=== PATIENT | female | born 1990 | race Caucasian/White ===

== ENCOUNTER 2016-11-26 20:06 | Inpatient (IN) | payer MEDICAID, OTHER ==
[~2016-11-26] VITALS: Ht 160 cm; Wt 58.4 kg
[~2016-11-26 20:06] MED LIST: PREN1TAB49
[2016-11-26] MEDS ORDERED: VANCOMYCIN 500MG/NS (PMX) 100 ML IVPB SCH (21:00)
[2016-11-26] MEDS ORDERED: CEFEPIME 2GM/50 ML (PMX) 50 ML IVPB ONE (21:00)
[2016-11-26] MEDS ORDERED: SOD CHLORIDE 0.9% 1,000 ML IV ONE (21:00)
--- NOTE | 2016-11-26 21:10 | ERD ---
ER Documentation Chief Complaint Date/Time DATE: 11/26/16 TIME: 21:08 Chief Complaint right breast pain x 3 weeks HPI This is a 26-year-old female presents to the ER with a 3 week history of right breast pain, redness, swelling. Patient saw her primary care doctor and was put on clindamycin and dicloxacillin. His antibiotics did not work, ultrasound was done and she was told she had an infection, she was then given cephalexin however this did not work either. Patient states that redness and swelling is worsening and areas now more painful. She denies any nipple discharge she denies any other skin changes. She does not have any family history of breast cancer. She does not have any fevers or chills. Pain is described as throbbing in quality and radiates to the right side of her back now. She has not tried anything for the pain. ROS 12 point review of systems was done, all negative except per HPI. Medications Home Meds Reported Medications Vits W-Ca,Fe,Fa(<1MG) () 1 Tab Tablet, 1 01/12/12 Allergies Allergies: Coded Allergies: No Known Allergy (Verified , 01/12/12) PMhx/Soc Medical and Surgical Hx: pt denies Medical Hx, pt denies Surgical Hx History of Surgery: Yes (DENIES MEDICAL PROBLEMS) Hx Alcohol Use: No Hx Substance Use: No Hx Tobacco Use: No Smoking Status: Never smoker Physical Exam Vitals Vital Signs Date Time Temp Pulse Resp B/P Pulse Ox O2 Delivery O2 Flow Rate FiO2 11/26/16 20:08 99.0 93 20 113/76 100 Physical Exam GENERAL: The patient is well developed and appropriate for usual state of health , in no apparent distress. HEENT: Atraumatic. CHEST: Clear to auscultation bilaterally. There are no rales, wheezes or rhonchi. HEART: Regular rate and rhythm. No murmurs, clicks, rubs or gallops. BREAST: large abscess to the right breast about 5cm*6cm. +nipple inversion of the right breast NEURO: alert and oriented SKIN: right breast abscess Results 24 hrs Current Medications Medications (Trade) Dose Ordered Sig/Kedar Route PRN Reason Start Time Stop Time Status Last Admin Dose Admin Vancomycin HCl 100 ml @ 100 mls/hr ONCE IVPB 11/26/16 21:00 11/26/16 21:59 Cefepime HCl 50 ml @ 100 mls/hr ONCE ONCE IVPB 11/26/16 21:00 11/26/16 21:29 Sodium Chloride (NS) 1,000 ml @ 1,000 mls/hr Q1H ONCE IV 11/26/16 21:00 11/26/16 21:59 Procedures/MDM This is a 26-year-old female presents to the ER with a right breast abscess. At this time patient has failed outpatient antibiotics and will be admitted to the hospital for IV antibiotics and possible drainage. Departure Diagnosis: Primary Impression: Breast abscess Condition: Stable KERRI RAMOS Nov 26, 2016 21:10
--- NOTE | 2016-11-26 21:45 | RADRPT ---
PROCEDURE: XR Chest. CLINICAL INDICATION: chest pain TECHNIQUE: Single frontal view of the chest was obtained COMPARISON: 02/09/2009 FINDINGS: The heart and mediastinum are within normal limits. The lungs are clear. There is no pleural effusion or pneumothorax. RPTAT: AA IMPRESSION: No acute disease. .Edmund Mcnamara MD, MD Date Time Electronically viewed and signed by .Edmund Mcnamara MD, on 11/26/2016 21:45 .S/
[2016-11-26 21:46] LABS: URINE BLOOD (Dip) POC Trace-intact (NEGATIVE)
[2016-11-26 21:55] LABS: ADD SCAN DIFF NO
[2016-11-26 21:57] LABS: BASOPHIL # 0.1 10^3/ul (0.0-0.1); BASOPHILS % 0.4 % (0.0-2.0); EOSINOPHILS # 0.2 10^3/ul (0.0-0.5); EOSINOPHILS % 1.5 % (0.0-7.0); HEMATOCRIT 37.9 % (37.0-47.0); HEMOGLOBIN 12.6 g/dl (12.0-16.0); LYMPHOCYTES # 2.5 10^3/ul (0.8-2.9); LYMPHOCYTES % 20.6 % (15.0-51.0); MEAN CORPUSCULAR HEMOGLOBIN 30.1 pg (29.0-33.0); MEAN CORPUSCULAR HGB CONC 33.2 g/dl (32.0-37.0); MEAN CORPUSCULAR VOLUME 90.5 fl (82.0-101.0); MEAN PLATELET VOLUME 9.6 fl (7.4-10.4); MONOCYTE # 1.2 10^3/ul (0.3-0.9); MONOCYTES % 9.7 % (0.0-11.0); NEUTROPHIL # 8.1 10^3/ul (1.6-7.5); NEUTROPHILS % 67.4 % (39.0-77.0); PLATELET COUNT 330 10^3/UL (140-415); RED BLOOD COUNT 4.19 10^6/ul (4.20-5.40); RED CELL DISTRIBUTION WIDTH 13.2 % (11.5-14.5)
[2016-11-26 22:01] LABS: ADD UMIC YES; URINE BILIRUBIN (Dip) NEGATIVE (NEGATIVE); URINE BLOOD (Dip) TRACE (NEGATIVE); URINE COLOR LT. YELLOW (YELLOW); URINE GLUCOSE (Dip) NEGATIVE (NEGATIVE); URINE KETONES (Dip) NEGATIVE (NEGATIVE); URINE LEUKOCYTE ESTERASE (Dip) 2+ (NEGATIVE); URINE NITRITE (Dip) NEGATIVE (NEGATIVE); URINE TOTAL PROTEIN (Dip) NEGATIVE (NEGATIVE); URINE UROBILINOGEN (Dip) 0.2 E.U./dL (0.1-1.0)
[2016-11-26] MEDS ORDERED: ONDANSETRON 4 MG INJ IV STA (22:02)
[2016-11-26] MEDS ORDERED: morphine 4 MG/ML VIAL IV STA (22:02)
[2016-11-26 22:09] LABS: INR 0.89; PT RATIO 0.9
[2016-11-26 22:10] LABS: PARTIAL THROMBOPLASTIN TIME 29.1 Sec (25.0-35.0)
[2016-11-26 22:15] LABS: ALBUMIN/GLOBULIN RATIO 1.08; CALCIUM 9.1 mg/dl (8.4-10.2); CREATININE 0.65 mg/dl (0.44-1.00); POTASSIUM 3.8 mmol/L (3.5-5.1); TOTAL PROTEIN 7.7 g/dl (6.1-8.1)
[2016-11-26 22:19] LABS: BACTERIA,URINE MANY; SQUAMOUS EPITHELIAL CELL,UR MODERATE; URINE RBCS 0-2 /HPF (0)
[2016-11-26] MEDS ORDERED: SOD CHLORIDE 0.9% 1,000 ML IV SCH (23:37)
--- NOTE | 2016-11-26 23:40 | EN ---
Date/Time of Note Date/Time of Note DATE: 11/26/16 TIME: 23:39 ER Progress Note Patient admitted to panel. Sonogram is currently pending. Sonogram is been taking the pending reading. Will have Dr. Eden call general surgery transportation services representative, Dr Knuston to notify him of consultation when sonogram is read LEE PITTMAN DO Nov 26, 2016 23:40
--- NOTE | 2016-11-27 01:04 | RADRPT ---
PROCEDURE: Ultrasound breast right CLINICAL INDICATION: Right breast abscess, erythema TECHNIQUE: Ultrasound of the right breast was performed. COMPARISON: None available FINDINGS: At 12 o'clock position there is a 7 x 5 x 7 mm simple cyst. At 6 o'clock to 9 o'clock position ther e is a 7.1 x 6.9 x 2.9 cm irregularly marginated area of heterogeneous predominately relatively decr eased echogenicity without visualized internal vascular flow with the appearance of a complex fluid collection with internal moving debris which could represent an abscess. IMPRESSION: At 6 o'clock to 9 o'clock position of the right breast there is a 7.1 x 6.9 x 2.9 cm irregularly mar ginated area of heterogeneous predominately relatively decreased echogenicity without visualized int ernal vascular flow with the appearance of a complex fluid collection with internal moving debris wh ich could represent an abscess. RECOMMENDATION: Clinical management and follow-up is recommended. BIRADS 3 - probably benign Discussed with YOSVANY Wilkes at 01:00 a.m. on 11/27/2016. RPTAT: HJES .Joe Mcclelland MD, MD Date Time Electronically viewed and signed by .Joe Mcclelland MD, on 11/27/2016 01:04 .S/
[2016-11-27 02:41] VITALS: TEMP 98.5
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
[2016-11-27 04:20] VITALS: Ht 160 cm; Wt 58.4 kg
[2016-11-27 04:45] VITALS: BP 109/67; PULSE 77; RESP 19
[2016-11-27] MEDS ORDERED: ACETAMINOPHEN 325 MG TAB PO PRN ×2 (05:00)
[2016-11-27] MEDS ORDERED: ONDANSETRON 4 MG INJ IV PRN ×2 (05:00)
[2016-11-27] MEDS ORDERED: VANCOMYCIN IV PER PHARMACY XX SCH (05:00)
[2016-11-27] MEDS: VANCOMYCIN 1 GM in NS 250 ML IVPB SCH ×2 (05:08→16:05)
[2016-11-27 06:43] LABS: ADD SCAN DIFF NO
[2016-11-27 06:52] LABS: BASOPHIL # 0.1 10^3/ul (0.0-0.1); BASOPHILS % 0.4 % (0.0-2.0); EOSINOPHILS # 0.2 10^3/ul (0.0-0.5); EOSINOPHILS % 1.7 % (0.0-7.0); HEMATOCRIT 36.9 % (37.0-47.0); LYMPHOCYTES # 2.4 10^3/ul (0.8-2.9); LYMPHOCYTES % 19.9 % (15.0-51.0); MEAN CORPUSCULAR HEMOGLOBIN 29.9 pg (29.0-33.0); MEAN CORPUSCULAR HGB CONC 32.5 g/dl (32.0-37.0); MEAN CORPUSCULAR VOLUME 91.8 fl (82.0-101.0); MEAN PLATELET VOLUME 9.6 fl (7.4-10.4); MONOCYTE # 1.2 10^3/ul (0.3-0.9); MONOCYTES % 9.7 % (0.0-11.0); NEUTROPHIL # 8.3 10^3/ul (1.6-7.5); PLATELET COUNT 319 10^3/UL (140-415); RED BLOOD COUNT 4.02 10^6/ul (4.20-5.40); RED CELL DISTRIBUTION WIDTH 13.3 % (11.5-14.5); WHITE BLOOD COUNT 12.2 10^3/ul (4.8-10.8)
[2016-11-27 07:05] LABS: ALBUMIN 3.4 g/dl (3.3-4.9)
[2016-11-27 07:06] LABS: POTASSIUM 3.8 mmol/L (3.5-5.1)
[2016-11-27 07:08] LABS: ALBUMIN/GLOBULIN RATIO 0.97; BILIRUBIN,INDIRECT 0.4 mg/dl (0-1.1); BILIRUBIN,TOTAL 0.4 mg/dl (0.2-1.3); CREATININE 0.57 mg/dl (0.44-1.00); PHOSPHORUS 3.5 mg/dl (2.5-4.9); TOTAL PROTEIN 6.9 g/dl (6.1-8.1)
[2016-11-27 07:09] LABS: CALCIUM 8.3 mg/dl (8.4-10.2); MAGNESIUM 1.9 mg/dl (1.7-2.5)
[2016-11-27] MEDS: PIPER-TAZO 3.375 GM IV (PMX) 100 ML IVPB SCH ×4 (07:23→23:53)
[2016-11-27 07:49] VITALS: BP 91/54; RESP 18
--- NOTE | 2016-11-27 12:06 | PN ---
Date/Time of Note Date/Time of Note DATE: 11/27/16 TIME: 12:01 Assessment/Plan VTE Prophylaxis VTE Prophylaxis Intervention: other Lines/Catheters [facility] Saline Lock Urinary Cath still in place: No Assessment/Plan Problems: (1) Breast abscess Status: Acute Comment: She has rather significant breast abscess is failed all attempts at outpatient treatment. She is admitted and is on IV antibiotic therapy. She will need most likely some type of a modest drainage procedure and general surgery has been contacted per Subjective 24 Hr Interval Summary Free Text/Dictation Patient reports that she is still having significant pain. Respiratory: no complaints Cardiovascular: no complaints Gastrointestinal: no complaints Genitourinary: no complaints Musculoskeletal: no complaints Skin: other (Pain at right breast) Exam/Review of Systems Vital Signs Vitals Vital Signs Date Time Temp Pulse Resp B/P Pulse Ox O2 Delivery O2 Flow Rate FiO2 11/27/16 07:49 98.5 67 18 91/54 98 11/27/16 04:45 Room Air Intake and Output 11/26/16 11/26/16 11/27/16 15:00 23:00 07:00 Intake Total 150 ml Balance 150 ml Exam Constitutional: alert, oriented Neck: non-tender, supple Respiratory: clear to auscultation, normal air movement Cardiovascular: nl pulses, regular rate and rhythm Gastrointestinal: nl liver, spleen, non-tender, soft Skin: other (Large area of cellulitis swelling and tenderness with warmth and erythema in the right breast coming to ahead at the 9 o'clock position) Results Result Diagram: 11/27/16 0630 11/27/16 0630 Results 24 hrs Laboratory Tests Test 11/26/16 21:35 11/26/16 21:47 11/27/16 06:30 White Blood Count 12.0 H 12.2 H Red Blood Count 4.19 L 4.02 L Hemoglobin 12.6 12.0 Hematocrit 37.9 36.9 L Mean Corpuscular Volume 90.5 91.8 Mean Corpuscular Hemoglobin 30.1 29.9 Mean Corpuscular Hemoglobin Concent 33.2 32.5 Red Cell Distribution Width 13.2 13.3 Platelet Count 330 319 Mean Platelet Volume 9.6 9.6 Neutrophils % 67.4 68.0 Lymphocytes % 20.6 19.9 Monocytes % 9.7 9.7 Eosinophils % 1.5 1.7 Basophils % 0.4 0.4 Nucleated Red Blood Cells % 0.0 0.0 Neutrophils # 8.1 H 8.3 H Lymphocytes # 2.5 2.4 Monocytes # 1.2 H 1.2 H Eosinophils # 0.2 0.2 Basophils # 0.1 0.1 Nucleated Red Blood Cells # 0.0 0.0 Prothrombin Time 12.0 L Prothrombin Time Ratio 0.9 INR International Normalized Ratio 0.89 Activated Partial Thromboplast Time 29.1 Urine Color LT. YELLOW Urine Clarity CLEAR Urine pH 7.0 Urine Specific Glynn 1.015 Urine Ketones NEGATIVE Urine Nitrite NEGATIVE Urine Bilirubin NEGATIVE Urine Urobilinogen 0.2 E.U./dL Urine Leukocyte Esterase 2+ H Urine Microscopic RBC 0-2 Urine Microscopic WBC 10-25 Urine Squamous Epithelial Cells MODERATE Urine Bacteria MANY Urine Hemoglobin TRACE Urine Glucose NEGATIVE Urine Total Protein NEGATIVE Sodium Level 136 139 Potassium Level 3.8 3.8 Chloride Level 100 102 Carbon Dioxide Level 30 28 Anion Gap 10 13 Blood Urea Nitrogen 11 8 Creatinine 0.65 0.57 Glucose Level 95 94 Calcium Level 9.1 8.3 L Total Bilirubin 0.0 L 0.4 Direct Bilirubin 0.00 0.00 Indirect Bilirubin 0.0 0.4 Aspartate Amino Transf (AST/SGOT) 23 20 Alanine Aminotransferase (ALT/SGPT) 30 23 Alkaline Phosphatase 94 75 Total Protein 7.7 6.9 Albumin 4.0 3.4 Globulin 3.70 H 3.50 H Albumin/Globulin Ratio 1.08 0.97 Bedside Urine pH (LAB) 7.0 Bedside Urine Protein (LAB) Negative Bedside Urine Glucose (UA) Negative Bedside Urine Ketones (LAB) Negative Bedside Urine Blood Trace-intact H Bedside Urine Nitrite (LAB) Negative Bedside Urine Leukocyte Esterase (L 1+ H Phosphorus Level 3.5 Magnesium Level 1.9 Medications Medications Current Medications Piperacillin Sod/ Tazobactam Sod (Zosyn 3.375gm/ 100 ml (Pmx)) 100 ml @ 200 mls /hr Q6 IVPB Last administered on 11/27/16 07:23; Admin Dose 200 MLS/HR; Start 11/27/16 at 06:00 Morphine Sulfate (morphine) 3 mg Q4H PRN IV PAIN; Start 11/27/16 at 05:00 Ondansetron HCl (Zofran Inj) 4 mg Q6H PRN IV NAUSEA AND/OR VOMITING; Start at 05:00 Acetaminophen 650 mg 650 mg Q6H PRN PO PAIN AND OR ELEVATED TEMP; Start at 05:00 Vancomycin HCl (Vancocin) 250 ml @ 125 mls/hr Q12H IVPB Last administered on t 05:08; Admin Dose 125 MLS/HR; Start 11/27/16 at 05:00 Miscellaneous Information (*Rx Drug Level Order Reminder*) VANCOMYCIN TROUGH 11/28 AT 1600 ONCE ONCE XX ; Start 11/28/16 at 16:00; Stop 11/28/16 at 16:01 CYNTHIA GRACE MD Nov 27, 2016 12:06
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
[2016-11-27] MEDS: morphine 4 MG/ML VIAL IV PRN ×2 (16:09→20:27)
[2016-11-27] MEDS ORDERED: LIDOCAINE 1% (MDV) 20 ML INJ ONE (17:55)
[2016-11-27] MEDS ORDERED: LIDOCAINE 1% (MPF) 30 ML INJ INJ PRN (18:00)
[2016-11-27 19:54] VITALS: BP 93/56; RESP 18
--- NOTE | 2016-11-27 20:46 | PN ---
DATE: 11/27/2016 I discussed proceeding with her incision and drainage of right breast abscess with Mr. Paula Arriola. All benefits, risks, alternatives were discussed in detail. The patient elected to proceed. The right breast area of fluctuance was cleaned with 3 Betadine swabs. No fluctuant area was infiltrated with 10 mL of 1% lidocaine, a skin incision was made over umesh area of fluctuance and using a hemostat, I entered the abscess cavity. Cultures were taken. I evacuated approximately 200 mL of purulent fluid. The abscess cavity was packed with a sterile gauze. A dry sterile dressing was applied. The patient tolerated procedure well. Dictated By: YUNI BRAVO/JOSSY Conf#: [id number] DID#: [id number] MTDD
[2016-11-27] MEDS ORDERED: HYDROmorphONE 1 MG/ML SYG IV STA (22:35)
[2016-11-28] MEDS ORDERED: morphine 4 MG/ML VIAL IV PRN (01:00)
[2016-11-28] MEDS: VANCOMYCIN 1 GM in NS 250 ML IVPB SCH ×2 (04:43→17:44)
[2016-11-28] MEDS: PIPER-TAZO 3.375 GM IV (PMX) 100 ML IVPB SCH ×3 (07:10→17:44)
[2016-11-28 07:49] VITALS: BP 95/55; RESP 18
[2016-11-28] MEDS: HYDROCODONE/APAP (10/325) TAB PO PRN ×3 (09:19→22:16)
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
--- NOTE | 2016-11-28 13:20 | PN ---
DATE: 11/28/2016 Ms. Arriola is hospital day 2 for a right breast abscess. It was I and D'd by me last night. The pat ient is feeling better. She is currently afebrile. OBJECTIVE: VITAL SIGNS: Stable. ABDOMEN: Her right breast, her wound is clean, dry, and intact. LABORATORY DATA: She does not have labs pending today. ASSESSMENT AND PLAN: Ms. Arriola is a 26-year-old female status post I and D of right breast abscess. She should be able to be discharged home with dressing changes daily. She will be followed in my office in 2 weeks. Dictated By: YUNI BRAVO/NTS Conf#: [id number] DID#: [id number]
[2016-11-28 20:01] VITALS: BP 102/59; RESP 16
[2016-11-29] MEDS: PIPER-TAZO 3.375 GM IV (PMX) 100 ML IVPB SCH ×4 (00:08→18:04)
[2016-11-29] MEDS ORDERED: DIPHENHYDRAMINE 25 MG CAP PO ONE (00:30)
[2016-11-29] MEDS: VANCOMYCIN 1 GM in NS 250 ML IVPB SCH ×3 (00:47→18:03)
[2016-11-29 06:15] LABS: ADD SCAN DIFF NO
[2016-11-29 06:27] LABS: BASOPHILS % 0.3 % (0.0-2.0); EOSINOPHILS # 0.2 10^3/ul (0.0-0.5); EOSINOPHILS % 2.1 % (0.0-7.0); HEMOGLOBIN 11.7 g/dl (12.0-16.0); LYMPHOCYTES # 2.5 10^3/ul (0.8-2.9); LYMPHOCYTES % 25.8 % (15.0-51.0); MEAN CORPUSCULAR HEMOGLOBIN 29.8 pg (29.0-33.0); MEAN CORPUSCULAR HGB CONC 32.5 g/dl (32.0-37.0); MEAN CORPUSCULAR VOLUME 91.8 fl (82.0-101.0); MEAN PLATELET VOLUME 9.5 fl (7.4-10.4); MONOCYTE # 1.2 10^3/ul (0.3-0.9); MONOCYTES % 11.9 % (0.0-11.0); NEUTROPHIL # 5.8 10^3/ul (1.6-7.5); NEUTROPHILS % 59.6 % (39.0-77.0); PLATELET COUNT 296 10^3/UL (140-415); RED BLOOD COUNT 3.92 10^6/ul (4.20-5.40); RED CELL DISTRIBUTION WIDTH 13.4 % (11.5-14.5); WHITE BLOOD COUNT 9.8 10^3/ul (4.8-10.8)
[2016-11-29 06:53] LABS: POTASSIUM 3.7 mmol/L (3.5-5.1)
[2016-11-29 06:55] LABS: CREATININE 0.6 mg/dl (0.44-1.00)
[2016-11-29 06:56] LABS: CALCIUM 8.4 mg/dl (8.4-10.2)
[2016-11-29 07:17] LABS: INR 0.99; PROTIME 13.1 Sec (12.2-14.2)
[2016-11-29 07:18] LABS: PARTIAL THROMBOPLASTIN TIME 28.3 Sec (25.0-35.0)
[2016-11-29 08:12] VITALS: BP 94/53; RESP 18
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
[2016-11-29] MEDS ORDERED: DIPHENHYDRAMINE 50 MG INJ IV ONE (19:00)
[2016-11-29] MEDS ORDERED: FAMOTIDINE 20 MG INJ IV ONE (19:00)
[2016-11-29] MEDS ORDERED: predniSONE 20 MG TAB PO ONE (19:00)
[2016-11-29 20:07] VITALS: BP 114/74; RESP 18
[2016-11-30] MEDS ORDERED: VANCOMYCIN 1.25 GM in SOD CHLORIDE 0.9% 250 ML IVPB SCH (01:00)
[2016-11-30] MEDS ORDERED: DIPHENHYDRAMINE 50 MG INJ IV PRN (01:00)
[2016-11-30 05:43] LABS: ADD SCAN DIFF NO
[2016-11-30 06:08] LABS: PARTIAL THROMBOPLASTIN TIME 28.4 Sec (25.0-35.0); PROTIME 13.2 Sec (12.2-14.2)
[2016-11-30 06:20] LABS: BASOPHILS % 0.2 % (0.0-2.0); EOSINOPHILS # 0.2 10^3/ul (0.0-0.5); EOSINOPHILS % 1.3 % (0.0-7.0); HEMATOCRIT 39.8 % (37.0-47.0); LYMPHOCYTES % 16.2 % (15.0-51.0); MEAN CORPUSCULAR HEMOGLOBIN 29.7 pg (29.0-33.0); MEAN CORPUSCULAR HGB CONC 32.7 g/dl (32.0-37.0); MEAN CORPUSCULAR VOLUME 91.1 fl (82.0-101.0); MEAN PLATELET VOLUME 9.6 fl (7.4-10.4); MONOCYTE # 1.3 10^3/ul (0.3-0.9); MONOCYTES % 10.2 % (0.0-11.0); NEUTROPHIL # 8.9 10^3/ul (1.6-7.5); NEUTROPHILS % 71.8 % (39.0-77.0); PLATELET COUNT 346 10^3/UL (140-415); RED BLOOD COUNT 4.37 10^6/ul (4.20-5.40); WHITE BLOOD COUNT 12.4 10^3/ul (4.8-10.8)
[2016-11-30 06:32] LABS: CALCIUM 9.3 mg/dl (8.4-10.2); CREATININE 0.67 mg/dl (0.44-1.00)
[2016-11-30 07:47] VITALS: BP 94/56; RESP 16
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
--- NOTE | 2016-11-30 12:33 | PDOCDIS ---
Discharge Instructions CONDITION Patient Condition: Good HOME CARE INSTRUCTIONS: Special Diet: REGULAR ACTIVITY: Activity Restrictions: Slowly Increase Activity Rest between Activity Avoid heavy lifting Avoid Heavy Housework FOLLOW UP/APPOINTMENTS Appointments Follow up with her own PMD through HMO insurance in 1-2 week after discharge, Follow up with General surgery in 2 weeks after discharge BEAR JACKMAN MD November 30, 2016 12:32
[2016-11-30] MEDS ORDERED: PRED20TA PO (12:34)
[2016-11-30] MEDS ORDERED: ACET325T33 PO (12:34)
[2016-11-30] MEDS ORDERED: LEVO500T10 PO (12:34)
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
== END 2016-11-30 16:10 | disposition home or self-care (01) | DRG 872 ==
LOC: FTE 20:06 → MS2 23:38
PROVIDERS: ADMIT Internal Medicine; ATTEND Internal Medicine
PROC: 0H9T0ZZ Drainage of Right Breast, Open Approach (ICD-10-PCS; principal; 2016-11-27)
DX: A41.9 Sepsis, unspecified organism (principal); N39.0 Urinary tract infection, site not specified; N61.1 Abscess of the breast and nipple
CPT/HCPCS: 71010; 76642; 80048; 80053; 80202; 81001; 81003; 83735; 84100; 84703; 85025; 85610; 85730; 87040; 87070; 87086; 96374; 96375; J0692; J1170; J1200; J2270; J2405; J2543; J3370; J7030; J7050; J7512

== ENCOUNTER 2018-07-31 11:17 | Inpatient (IN) | payer BC ==
[~2018-07-31] VITALS: Ht 160 cm; Wt 70.0 kg
[~2018-07-31 11:17] MED LIST changes: +ACET325T33 PO; +LEVO500T10 PO; +PRED20TA PO; -PREN1TAB49
--- NOTE | 2018-07-31 11:41 | TRIAGE ---
OB Triage Datetime Report Generated by CPN: 07/31/2018 11:41 Datetime: 07/31/2018 11:25 Time of Arrival: 07/31/2018 11:15 EGA: 38.6 Arrived By: Ambulatory Arrived From: Home Chief Complaint: UCS SINCE 030 Movement: Present Contractions: Regular Time Contractions Began: 07/31/2018 03:00 Contractions: Q 10 AT HOME Rupture of Membranes: Denies Vaginal Discharge: Denies Recent Sexual Intercouse: Denies Abdominal Trauma: Not Applicable Patient Complaints: Contractions Provider Notified: DR MILES Initial Plan: EFM,SVE Datetime: 07/31/2018 11:24 Maternal Assessment Level of Consciousness: Fully Conscious DTR's/Clonus: DTRs 2+; No Clonus Headache: Denies Blurred Vision: No Respiratory Effort: Unlabored; Regular Rhythm; Equal Expansion Breath Sounds, Left: Clear and Equal Breath Sounds, Right: Clear and Equal Nausea/Vomiting: Denies RUQ Epigastric Pain: Denies Facial Edema: None Temperature Route: Axillary Fall Risk Assessment History of Falling: (0) No Secondary Diagnosis: (0) No Ambulatory Aid: (0) Bedrest/Nurse Assist IV Therapy: (0) No Gait: (0) Normal/Bedrest/Immobile Mental Status: (0) Oriented to Own Ability Fall Score: 0 Fall Risk Score Definition: No Risk: No action required
[2018-07-31 11:50] VITALS: Ht 160 cm; Wt 70.0 kg
[2018-07-31 11:51] VITALS: BP 122/81; PULSE 76; RESP 20
[2018-07-31] MEDS ORDERED: BUTORPHANOL 1 MG INJ IV PRN (12:00)
[2018-07-31] MEDS ORDERED: OXYTOCIN 30 UNITS/LR 500 ML IV SCH ×2 (12:00)
[2018-07-31] MEDS ORDERED: IBUPROFEN 600 MG TAB PO PRN (12:00)
[2018-07-31] MEDS ORDERED: BUTORPHANOL 2 MG INJ IV PRN (12:00)
[2018-07-31] MEDS ORDERED: AMPICILLIN 2 GM/NS (PMX) 100 ML IV ONE (12:00)
[2018-07-31] MEDS ORDERED: CARBOPROST 250 MCG INJ IM PRN ×2 (12:00→19:00)
[2018-07-31] MEDS ORDERED: OXYTOCIN 30 UNITS/LR 500 ML IV PRN ×2 (12:00→19:00)
[2018-07-31] MEDS ORDERED: MISOPROSTOL 200 MCG TAB PR PRN ×2 (12:00→19:00)
[2018-07-31] MEDS ORDERED: LIDOCAINE 1% (MPF) 30 ML INJ INJ PRN (12:00)
[2018-07-31] MEDS ORDERED: METHYLERGONOVINE 0.2 MG INJ IM PRN (12:00)
[2018-07-31] MEDS: LACTATED RINGER'S 1,000 ML IV SCH ×3 (12:33→15:11)
[2018-07-31] MEDS ORDERED: FENTAnyl 2MCG/ML-ROPIV 0.2% 100 ML ONE (14:15)
--- NOTE | 2018-07-31 14:27 | PREAC ---
Date/Time of Note Date/Time of Note DATE: 07/31/18 TIME: 14:25 Anesthesia Eval and Record Evaluation Time Pre-Procedure Interview DATE: 07/31/18 TIME: 14:25 Age 27 Sex female NPO: 8 hrs Preoperative diagnosis Labor Pain Planned procedure Labor Epidural Past Medical History Past Medical History: Includes : : (2), Para: (1), Gestational age: (36) Surgery & Anesthesia Issues No known issue Meds Anticoagulation: No Beta [place] within 24 hr: No Reason Beta Rome not given: Pt. not on B-R[place] Active Scripts Acetaminophen* (Tylenol*) 325 Mg Tablet, 650 MG PO Q6H PRN for PAIN AND OR ELEVATED TEMP, #30 TAB Prov:BEAR JACKMAN MD 11/30/16 Prednisone* (Prednisone*) 20 Mg Tab, 20 MG PO DAILY for allergic reaction, #5 TAB Prov:BEAR JACKMAN MD 11/30/16 Levofloxacin* (Levofloxacin*) 500 Mg Tablet, 500 MG PO DAILY for abscess , #7 TAB Prov:BEAR JACKMAN MD 11/30/16 Current Medications Lactated Ringer's 1,000 ml @ 125 mls/hr Q8H IV Last administered on 07/31/18at 14:16; Admin Dose 125 MLS/HR; Start 07/31/18 at 11:43 Ampicillin 50 ml @ 100 mls/hr Q4H IV ; Start 07/31/18 at 16:00 Butorphanol Tartrate (Stadol) 1 mg Q2H PRN IV PAIN; Start 07/31/18 at 12:00 Butorphanol Tartrate (Stadol) 2 mg Q2H PRN IV PAIN Last administered on 07/31/18a t 12:39; Admin Dose 2 MG; Start 07/31/18 at 12:00 Lidocaine (Xylocaine 1% (Mpf)) 30 ml ONCE PRN INJ EPISIOTOMY; Start 07/31/18 at 12:00 Oxytocin/Lactated Ringer's 500 ml @ 500 mls/hr ONCE POST IV ; Start 07/31/18 at 12:00 Oxytocin/Lactated Ringer's 500 ml @ 125 mls/hr POST IV ; Start 07/31/18 at 12:00 Ibuprofen (Motrin) 600 mg ONCE PRN PO PAIN LEVEL 1-5; Start 07/31/18 at 12:00 Oxytocin/Lactated Ringer's 500 ml @ 0 mls/hr ONCE PRN IV VAGINAL BLEEDING; Start 07/31/18 at 12:00 Methylergonovine Maleate (Methergine) 0.2 mg ONCE PRN IM VAGINAL BLEEDING; Start 07/31/18 at 12:00 Carboprost Tromethamine (Hemabate) 250 mcg ONCE PRN IM VAGINAL BLEEDING; Start 07/31/18 at 12:00 Misoprostol (Cytotec) 1,000 mcg ONCE PRN WA VAGINAL BLEEDING; Start 07/31/18 at 12:00 Meds reviewed: Yes Allergies Coded Allergies: vancomycin (Unverified Allergy, Intermediate, hives, 07/31/18) Allergies Reviewed: Yes Labs/Studies Labs Reviewed: Reviewed by anesthesiologist Result Diagram: 07/31/18 1220 Laboratory Tests 07/31/18 12:20 Blood Bank Test 07/31/18 12:20 Antibody Screen NEGATIVE Blood Type O POSITIVE Rh Immune Globulin Candidate NO test: Positive Studies: ECG (n/a), CXR (n/a) Pre-procedure Exam Last vitals Vital Signs Date Temp Pulse Resp B/P (MAP) Pulse Ox O2 O2 Flow FiO2 Time Delivery Rate 07/31/18 98.3 76 20 122/81 Room Air 11:51 (95) Airway: Adequate mouth opening, Adequate thyromental dist Mallampati: Mallampati II Teeth: Normal Lung: Normal Heart: Normal ASA Physical Status ASA physical status: 2 Emergency: None Planned Anesthetic Neuraxial: Epidural Planned Pain Management Epidural Pre-operative Attestations Prior to commencing anesthesia and surgery, the patient was re-evaluated, there was verification of: *The patient's identity *The results of appropriate recent lab work and preoperative vital signs *The above evaluation not changing prior to induction *Anesthetic plan, risk benefits, alternative and complications discussed with patient/family; questions answered; patient/family understands, accepts and wishes to proceed. EMILIANA SCHULTZ MD Jul 31, 2018 14:27
--- NOTE | 2018-07-31 14:28 | PAC ---
Date/Time of Note Date/Time of Note DATE: 07/31/18 TIME: 14:28 Post-Anesthesia Notes Post-Anesthesia Note Last documented vital signs Vital Signs Date Temp Pulse Resp B/P (MAP) Pulse Ox O2 O2 Flow FiO2 Time Delivery Rate 07/31/18 98.3 76 20 122/81 98 Room Air 14:31 (95) Activity: WNL Respiratory function: WNL Cardiovascular function: WNL Mental status: Baseline Pain reasonably controlled: Yes Hydration appropriate: Yes Nausea/Vomiting absent: Yes EMILIANA SCHULTZ MD Jul 31, 2018 14:28
[2018-07-31] MEDS ORDERED: NALOXONE (0.4 MG/ML) INJ IV PRN (14:30)
[2018-07-31] MEDS ORDERED: FENTAnyl 2MCG/ML-ROPIV 0.2% 100 ML BAG EPI SCH (14:30)
[2018-07-31] MEDS ORDERED: AMPICILLIN 1 GM/NS (PMX) 50 ML IV SCH (16:00)
--- NOTE | 2018-07-31 17:11 | HP ---
Date/Time of Note Date/Time of Note DATE: 07/31/18 TIME: 17:10 OB - History Hx of Present Free Text/Dictation @38+wks GA in labor : 2 Para: 1 Care: Good Care Ultrasounds: Normal mid trimester US Obstetrical Complications: None Medical Complications: None Past Family/Social History * Past Medical, Surgical, Family and Obstetric Histories reviewed from chart. OB Admission Exam Vital Signs Vital Signs Vital Signs Date Temp Pulse Resp B/P (MAP) Pulse Ox O2 O2 Flow FiO2 Time Delivery Rate 07/31/18 98.3 76 20 122/81 Room Air 11:51 (95) Physical Exam Abdomen: WNL Cervical Dilatation: 6cm Effacement: 50% Station: -1 Membranes: Intact Heart Rate: 140's Accelerations: Accelerations Present Decelerations: No Decelerations Varibility: Moderate Contractions on Admission: 6-10 Minutes Apart Last 72 hours Lab Results CBC & BMP 07/31/18 12:20 OB Assessment/Plan Reason for admission: observation Plan: Expectant Management LOWELL MILES M.D. Jul 31, 2018 17:11
[2018-07-31] MEDS ORDERED: LACTATED RINGER'S 1,000 ML IV* SCH (18:41)
--- NOTE | 2018-07-31 18:45 | LDN ---
Date/Time of Note Date/Time of Note DATE: 07/31/18 TIME: 18:43 Delivery Summary 27 YO with IUP at 38+ weeks who presented in labor. s/p of viable female infant with APGARS 8 and 9. first degree R. PU laceration was repaired with 3-0 Chromic on SH. placenta delivered spontaneously and intact. Anesthesia type: Epidural Estimated blood loss: 300 Sponge & Needle done & correct: Yes All needle counts correct: Yes Any foreign bodies felt in the: No Delivery Information Sex Sex: female Apgars 1 Minute: 8 5 Minute: 9 Suctioning Nose & mouth suctioned at nelly: No Delee suction performed: No Umbilical Cord Umbilical cord with: 3 Vessels Cord presentations: no nuchal cord Cord Blood was obtained: Yes Mother & Baby Disposition Disposition Mom & Baby to Maternity; Good: Yes STERLING HUGHES MD Jul 31, 2018 18:45
[2018-07-31] MEDS ORDERED: LANOLIN HPA 1 PKT TOP PRN (19:00)
[2018-07-31] MEDS ORDERED: WITCH HAZEL/GLYCERIN PAD PR PRN (19:00)
[2018-07-31] MEDS ORDERED: MAGNESIUM HYDROXIDE 30ML CUP PO PRN (19:00)
[2018-07-31] MEDS ORDERED: DIPHENHYDRAMINE 25 MG CAP PO PRN (19:00)
[2018-07-31] MEDS ORDERED: NA PHOSPHATE/BIPHOS 133 ML ENEMA PR PRN (19:00)
[2018-07-31] MEDS ORDERED: BENZOCAINE 20% 56 ML SPRAY TOP PRN (19:00)
[2018-07-31] MEDS ORDERED: DIBUCAINE 1% 30 GM OINT TOP PRN (19:00)
[2018-07-31] MEDS ORDERED: DIPHENHYDRAMINE 50 MG INJ IV PRN (19:00)
[2018-07-31] MEDS ORDERED: HYDROCODONE/APAP (5/325) TAB PO PRN ×2 (19:00)
[2018-07-31] MEDS ORDERED: ONDANSETRON 4 MG INJ IV PRN (19:00)
[2018-07-31] MEDS ORDERED: ONDANSETRON 4 MG TAB PO PRN (19:00)
[2018-07-31] MEDS ORDERED: SENNA/DOCUSATE NA (8.6MG/50MG) TAB PO PRN (19:00)
[2018-07-31 20:15] VITALS: BP 116/65; PULSE 70; RESP 18
[2018-07-31] MEDS: SENNA/DOCUSATE NA (8.6MG/50MG) TAB PO SCH (21:41)
[2018-08-01 00:40] VITALS: BP 109/69; PULSE 70; RESP 18
[2018-08-01] MEDS: IBUPROFEN 600 MG TAB PO SCH ×4 (00:41→18:22)
[2018-08-01 04:45] VITALS: BP 96/54; PULSE 79; RESP 19
--- NOTE | 2018-08-01 07:11 | NUR ---
EOSS: Pt in stable condition. Voiding without difficult. Bonding well with baby. Pain controlled with Motrin 600 mg PO.
[2018-08-01 08:30] VITALS: BP 104/72; PULSE 75; RESP 18
[2018-08-01] MEDS: SENNA/DOCUSATE NA (8.6MG/50MG) TAB PO SCH ×2 (09:46→20:55)
--- NOTE | 2018-08-01 14:56 | PN ---
Date/Time of Note Date/Time of Note DATE: 08/01/18 TIME: 14:55 OB Subjective Subjective Subjective PPD#1 Patient is doing well. She denies nausea, vomiting, shortness of breath, chest pain, headache. She has been ambulating without difficulty, tolerating regular diet. Pain is well controlled on current medications OB Objective Objective Objective VS - Last 72 Hours, by Label Date Temp Pulse Resp B/P (MAP) Pulse Ox O2 O2 Flow FiO2 Time Delivery Rate 08/01/18 98.3 75 18 104/72 Room Air 08:30 (83) 08/01/18 99.0 79 19 96/54 (68) Room Air 04:45 08/01/18 99.4 70 18 109/69 Room Air 00:40 (82) 07/31/18 98.6 70 18 116/65 Room Air 20:15 (82) 07/31/18 98.3 76 20 122/81 Room Air 11:51 (95) General: AAO X 3, comfortable, NAD, appropriate mood and affect. ABD: +BS. Soft, non-tender. Uterus 2 cm below umbilicus Flank: No CVA tenderness (B/L) LE: Mild edema. No clubbing, cyanosis, thigh or calf tenderness (B/L). Homans 'sign is negative OB Assessment/Plan Other plan: 27-year-old s/p normal vaginal delivery. PPD#1 - AF, VSS - Baby is doing well, at bed side. She is bonding well - Contraception methods with R/B/A/FR discussed - Continue care - Discharge home tomorrow - Rx and instruction given - Follow up in 2 and 6 weeks with LIVIA Crook Aug 01, 2018 14:56
--- NOTE | 2018-08-01 14:57 | DS ---
Date/Time of Note Date/Time of Note DATE: 08/01/18 TIME: 14:56 Obstetrical Discharge Record Final Diagnosis Final Diagnosis: Term delivered Other Final Diagnosis 27-year-old s/p normal vaginal delivery. PPD#1. course was unremarkable. She is ambulating and tolerating regular diet. She is voiding without difficulty. Pain is well controlled on current medication - AF, VSS - Baby is doing well, at bed side. She is bonding well - Contraception methods with R/B/A/FR discussed - Continue care - Discharge home tomorrow - Rx and instruction given - Follow up in [address] Haile Vaginal Delivery Obstetrical Delivery: Spontaneous Condition on Discharge Physical Assessment Last Vitals: Vital Signs Date Temp Pulse Resp B/P (MAP) Pulse Ox O2 O2 Flow FiO2 Time Delivery Rate 08/01/18 98.3 75 18 104/72 Room Air 08:30 (83) Voiding: Yes Bowel Movement: Yes Breast: Soft, non-tender Fundus: Firm Calf Tenderness: No Patient Condition: Stable LIVIA MARIE Aug 01, 2018 14:57
[2018-08-01 16:27] VITALS: BP 107/80; PULSE 76; RESP 18
--- NOTE | 2018-08-01 19:00 | NUR ---
EOSS: PT STABLE, AMBULATING, VOIDING, ASSISTED WITH BREAST FEEDING, NIPPLE SHIELD PROVIDED. SEEN BY JANAK. PLAN OF CARE, TO PROVIDE PT WITH A BREAST PUMP DUE TO LOW MILK SUPPLY AND HISTORY OF MASTITIS. Addendum: 08/01/18 at 1901 by NEL SOMMER RN Amended: Links added.
[2018-08-01 19:30] VITALS: BP 108/77; PULSE 76; RESP 18
[2018-08-02] MEDS: IBUPROFEN 600 MG TAB PO SCH ×3 (00:14→12:51)
[2018-08-02 04:00] VITALS: BP 103/63; PULSE 58
--- NOTE | 2018-08-02 05:54 | NUR ---
EOSS: Pt is in stable condition. No distress noted. Up and voiding. Breast pump provided and encouraged to pump every 2-3 hours for 15-20 mins. Bonding well with baby.
[2018-08-02 07:50] VITALS: BP 109/70; PULSE 70; RESP 16
[2018-08-02] MEDS ORDERED: MEASLES,MUMPS,RUBELLA VACCINE INJ SC* ONE (09:00)
[2018-08-02] MEDS ORDERED: VARICELLA VACCINE LIVE/PF 1,350 UNIT/0.5 ML ML SC* ONE (09:00)
[2018-08-02] MEDS ORDERED: DIPHTH/TET/ACEL PERTUSS (ADULT) 0.5 ML VIAL IM* ONE (09:00)
[2018-08-02] MEDS: SENNA/DOCUSATE NA (8.6MG/50MG) TAB PO SCH (09:12)
--- NOTE | 2018-08-02 13:56 | NUR ---
PATIENT WENT HOME WITH THE BABY, BOTH ON STABLE CONDITION. D/C INSTRUCTIONS GIVEN. VERBALIZED UNDERSTANDING.
== END 2018-08-02 14:18 | disposition home or self-care (01) | DRG 807 ==
LOC: OBT 11:17 → L-D 11:18 → OBT 11:30 → PP1 20:16
PROVIDERS: ADMIT Specialist; ATTEND Specialist
PROC: 10E0XZZ Delivery of Products of Conception, External Approach (ICD-10-PCS; principal; 2018-07-31)
PROC: 0HQ9XZZ Repair Perineum Skin, External Approach (ICD-10-PCS; 2018-07-31)
DX: O70.0 First degree perineal laceration during delivery (principal); Z37.0 Single live birth; Z3A.38 38 weeks gestation of pregnancy
CPT/HCPCS: 62319; 76815; 85025; 85610; 85730; 86592; 86703; 86762; 86850; 86900; 86901; 87340; G0463; J0290; J0595; J2590; J3010; J7120

== ENCOUNTER 2018-09-05 15:02 | Emergency (ER) | payer BC ==
[~2018-09-05] VITALS: Ht 154.9 cm; Wt 61.0 kg
[~2018-09-05 15:02] MED LIST changes: -PRED20TA PO
[2018-09-05 15:06] VITALS: BP 133/91; PULSE 84; RESP 16; Ht 154.9 cm; Wt 61.0 kg
[2018-09-05] MEDS ORDERED: ERYT1OIN6 LEFT EYE (16:07)
--- NOTE | 2018-09-05 18:51 | ERD ---
ER Documentation Chief Complaint Chief Complaint LEFT EYE BUMP X 1 MONTH, REDNESS/SWELLING HPI 28-year-old female presents emergency department complaining of a bump on the left eye for the past month has started to become painful. She was having redness and swelling. States that she has been applying warm compresses with no relief. Denies any fevers or vision changes ROS All systems reviewed and are negative except as per history of present illness. Medications Home Meds Active Scripts Erythromycin Base (Erythromycin) 1 Gm Oint...g., 1 APPLIC LEFT EYE QID for 7 Days Prov:SHANTI BAUGH PA-C 09/05/18 Acetaminophen* (Tylenol*) 325 Mg Tablet, 650 MG PO Q6H PRN for PAIN AND OR ELEVATED TEMP, #30 TAB Prov:BEAR JACKMAN MD 11/30/16 Levofloxacin* (Levofloxacin*) 500 Mg Tablet, 500 MG PO DAILY for abscess , #7 TAB Prov:BEAR JACKMAN MD 11/30/16 Allergies Allergies: Coded Allergies: vancomycin (Unverified Allergy, Intermediate, hives, 09/05/18) PMhx/Soc Medical and Surgical Hx: pt denies Medical Hx, pt denies Surgical Hx History of Surgery: No Anesthesia Reaction: No Hx Neurological Disorder: No Hx Respiratory Disorders: No Hx Cardiac Disorders: No Hx Psychiatric Problems: No Hx Miscellaneous Medical Probl: No Hx Alcohol Use: No Hx Substance Use: No Hx Tobacco Use: No Smoking Status: Never smoker Physical Exam Vitals Vital Signs Date Temp Pulse Resp B/P (MAP) Pulse Ox O2 O2 Flow FiO2 Time Delivery Rate 09/05/18 98.3 84 16 133/91 100 15:06 (105) Physical Exam Const: No acute distress Head: Atraumatic Eyes: Normal Conjunctiva, lid erythematous papule ENT: Normal External Ears, Nose and Mouth. Neck: Full range of motion. No meningismus. Resp: Clear to auscultation bilaterally Cardio: Regular rate and rhythm, no murmurs Abd: Soft, non tender, non distended. Normal bowel sounds Skin: No petechiae or rashes Back: No midline or flank tenderness Ext: No cyanosis, or edema Neur: Awake and alert Psych: Normal Mood and Affect Procedures/MDM This is a 28-year-old female presenting with the ED with erythematous papule on the left upper eyelid, differentials include but not limited to bleeding versus purulent. I have recommended patient to continue the warm compresses, I have given a prescription for erythromycin ointment and I have instructed her to follow-up with stock checkerer. Patient did not have any compromise in her vision. She stable to be discharged home with return precautions. Departure Diagnosis: Primary Impression: Eye lesion Condition: Stable Patient Instructions: Chalazion, Meibomian Gland Blockage, Sty Additional Instructions: FOLLOW UP WITH YOUR PRIMARY CARE PHYSICIAN TOMORROW.Return to this facility if you are not improving as expected. Follow up with your primary care physician to get a referral to see eye doctor Take all medicines as directed. Return to this facility if you are not improving as expected. SHANTI BAUGH PA-C Sep 05, 2018 18:51
== END 2018-09-05 16:29 | disposition home or self-care (01) ==
LOC: FTE 15:02
DX: H57.89 Other specified disorders of eye and adnexa (principal)
CPT/HCPCS: 99283